=== PATIENT | female | born 1985 | race Caucasian/White ===

== ENCOUNTER 2018-01-26 12:52 | Emergency (ER) | payer BC ==
[2018-01-26 13:02] VITALS: BP 148/86
[2018-01-26] MEDS ORDERED: Albuterol/Ipratropium NEB.SOL* Albuterol 2.5 MG/Ipratropium 0.5 MG 3 ML INH ONE (13:37)
--- NOTE | 2018-01-26 13:37 | UC ---
Respiratory Complaint HPI - HPI Summary HPI Summary: Patient presents to urgent care reporting increased persistent coughing and congestion. Patient states she has a wheeze in her chest. Patient also reports she has a headache particular she coughs. No vision changes. No fevers or chills. Patient states at night she takes NyQuil wakes up sweaty. Patient has been taking ibuprofen intermittently that helped her headache. Patient is a schoolteacher with multiple sick contacts. Patient denies chest pain. No abdominal pain. No nausea vomiting. Patient endorses a decreased appetite. She took Mucinex. Patient's medications reviewed this visit. Patient states she is not . - History of Current Complaint Chief Complaint: UCGeneralIllness Stated Complaint: WINSTON,COUGH,CONGESTION Time Seen by Provider: 01/26/18 13:22 Hx Obtained From: Patient Hx Last Menstrual Period: 01/23/18 Pain Intensity: 7 Pain Scale Used: 0-10 Numeric - Allergies/Home Medications Allergies/Adverse Reactions: Allergies Allergy/AdvReac Type Severity Reaction Status Date / Time No Known Allergies Allergy Verified 01/26/18 13:00 Home Medications: Home Medications Ibuprofen 600 mg PO ONCE 01/26/18 [History Confirmed 01/26/18] guaiFENesin [Mucinex] 1,200 mg PO ONCE 01/26/18 [History Confirmed 01/26/18] PMH/Surg Hx/FS Hx/Imm Hx Previously Healthy: Yes - Surgical History Surgical History: Yes Surgery Procedure, Year, and Place: tonsillectomy - Family History Known Family History: Positive: Other - non contributory Negative: Cardiac Disease, Hypertension - Social History Occupation: Employed Full-time Alcohol Use: Occasionally Substance Use Type: None Smoking Status (MU): Never Smoked Tobacco - Immunization History Most Recent Influenza Vaccination: none Review of Systems Constitutional: Negative Skin: Negative ENT: Nasal Discharge, Sinus Congestion Respiratory: Cough All Other Systems Reviewed And Are Negative: Yes Physical Exam - Summary Physical Exam Summary: Vital Signs Reviewed: Yes A+Ox3, no distress Eyes: Conjunctiva Clear, SEE. EOM intact and full ENT: Hearing grossly normal right TM obscurred by cerum -pt declined flush, lert TM wnl, turbinates inflammed and boggy + PND, mmoist, uvula midline, no exudate, no erythema Neck: Positive: Supple no LA Respiratory: Positive coarse cough + wheeze, no increased RR no accessory muscle use Cardiovascular: RRR nl s1, s2 no m/r CBT <2 sec abd soft + BS nt/nd no guarding, no distension Musculoskeletal Exam: MALLORY x 4 without difficulty Strength Intact, ROM Intact Neurological: Positive: Alert, + sensation throughout Psychological: Positive: Normal Response To Family Skin: Positive: no rash, no ecchymosis Triage Information Reviewed: Yes Vital Signs: Initial Vital Signs Temp 98.7 F 01/26/18 12:58 Pulse 115 01/26/18 12:58 Resp 15 01/26/18 12:58 BP 148/86 01/26/18 12:58 Pulse Ox 97 01/26/18 12:58 Diagnostic Evaluation - Laboratory O2 Sat by Pulse Oximetry: 97 Respiratory Course/Dx - Course Course Of Treatment: Patient presents reporting 4 days progressive congestion cough. Mild production with her cough. Patient does have wheezes. Patient's reports tactile temperature. Patient's been taking DayQuil and NyQuil with intermittent relief. Patient hasn't taken ibuprofen that she has headaches with coughing spells. Patient is a schoolteacher with multiple sick contacts. Patient without any other complaints. Patient with history of lung disease. On exam vital signs are stable. Patient does have a coarse persistent cough. Patient diffusely wheezy. We'll give a DuoNeb and reassessed. Anticipate prednisone albuterol possible antibiotic. Patient comfortable in agreement with plan. - Differential Dx/Diagnosis Provider Diagnoses: acute bronchitis Discharge - Sign-Out/Discharge Documenting (check all that apply): Patient Departure All imaging exams completed and their final reports reviewed: No Studies - Discharge Plan Condition: Stable Disposition: HOME Prescriptions: Albuterol HFA INHALER* [Ventolin HFA Inhaler*] 2 puff INH Q4H PRN #1 mdi PRN Reason: wheeze Amoxicillin PO (*) [Amoxicillin 500 MG CAP*] 500 mg PO Q12H #20 cap Inhaler, Assist Devices [Aerochamber Mv] 1 each PO Q6HR #1 spacer predniSONE TAB* [Deltasone 20 MG TAB*] 40 mg PO DAILY #10 tab Patient Education Materials: Acute Bronchitis (ED) Referrals: [facility] [place] [facility] [Outside] No Primary Care Phys,NOPCP [Primary Care Provider] - Additional Instructions: - Take antibiotics exactly as prescribed until gone - Use your albuterol puffer - 2 puffs every 4 hours for the next 2 days - then as needed - Take prednisone as prescribed until gone - These infections are spread by oral secretions. Do not share eating or drinking utensils. Frequent hand washing is important. Clean items that may get your secretions on them such as cell phones, ipads, computer mouse, television remotes. Once you have been on antbiotics for 2 days, change your pillowcase and your toothbrush - Okay to take over the counter cough and decongestant medication -Stay well hydrated - avoid excess caffeine and all alcohol - eat regular, healthy meals -Contact your doctor to arrange a follow-up appointment this week. Call your doctor, return here or go to the emergency department with any questions or concerns - Billing Disposition and Condition Condition: STABLE Disposition: Home
== END 2018-01-26 14:27 | disposition home or self-care (01) ==
LOC: UCCORT 12:52
DX: J20.9 Acute bronchitis, unspecified (principal)
CPT/HCPCS: 99212; A9270-GY; G0463

== ENCOUNTER 2019-01-18 12:09 | Emergency (ER) | payer SELFPAY ==
[2019-01-18] MEDS ORDERED: Famotidine TAB* 20 MG PO ONE (12:43)
[2019-01-18] MEDS ORDERED: predniSONE TAB* 20 MG PO ONE (12:43)
[2019-01-18] MEDS ORDERED: diPHENhydraMINE PO* 50 MG PO ONE (12:43)
--- NOTE | 2019-01-18 12:49 | UC ---
Skin Complaint HPI - HPI Summary HPI Summary: 33-year-old woman comes in with a chief complaint of facial swelling. Patient started with a rash on her arm several days ago. Yesterday she has some swelling around her eyes on her face. She took some Benadryl yesterday without any apparent improvement. Difficulty swallowing no shortness of breath. She did try a new shampoo that she stopped using several days ago when she started with a rash. No prior history of allergic reactions. No fevers no chills no upper respiratory tract infection symptoms feels well otherwise. - History of Current Complaint Time Seen by Provider: 01/18/19 12:36 Stated Complaint: B/L EYE SWELLING, RASH Hx Last Menstrual Period: 01/23/18 - Allergy/Home Medications Allergies/Adverse Reactions: Allergies Allergy/AdvReac Type Severity Reaction Status Date / Time No Known Allergies Allergy Verified 01/18/19 12:43 Home Medications: Home Medications diPHENhydraMINE PO* [Benadryl PO 25 MG TAB*] 25 mg PO Q6H PRN 01/18/19 [History Confirmed 01/18/19] PMH/Surg Hx/FS Hx/Imm Hx Previously Healthy: Yes - Surgical History Surgical History: Yes Surgery Procedure, Year, and Place: tonsillectomy - Family History Known Family History: Positive: Other - non contributory Negative: Cardiac Disease, Hypertension - Social History Alcohol Use: Occasionally Substance Use Type: None Smoking Status (MU): Never Smoked Tobacco - Immunization History Most Recent Influenza Vaccination: none Review of Systems All Other Systems Reviewed And Are Negative: Yes Constitutional: Positive: Negative Skin: Positive: Other - SEE HPI Eyes: Positive: Negative ENT: Positive: Negative Respiratory: Positive: Negative Cardiovascular: Positive: Negative Gastrointestinal: Positive: Negative Motor: Positive: Negative Neurovascular: Positive: Negative Musculoskeletal: Positive: Negative Neurological: Positive: Negative Psychological: Positive: Negative Is Patient Immunocompromised?: No Physical Exam Triage Information Reviewed: Yes Appearance: Well-Appearing, No Pain Distress, Well-Nourished Vital Signs Reviewed: Yes Eye Exam: Normal Eyes: Positive: Conjunctiva Clear ENT: Positive: Pharynx normal, Uvula midline. Negative: Muffled voice, Hoarse voice Neck: Positive: Supple Respiratory: Positive: Lungs clear, Normal breath sounds, No respiratory distress Cardiovascular: Positive: RRR Musculoskeletal: Positive: Strength Intact, ROM Intact Neurological: Positive: Alert Psychological: Positive: Age Appropriate Behavior Skin: Positive: Other - Patient has swelling and erythema that is symmetric of the forehead orbital area temporal areas and cheeks. No lip swelling. Also has a fine erythematous rash on both arms without any swelling. Course/Dx - Diagnoses Provider Diagnosis: Facial swelling, Allergic reaction, Rash Discharge ED - Sign-Out/Discharge Documenting (check all that apply): Patient Departure All imaging exams completed and their final reports reviewed: No Studies - Discharge Plan Condition: Stable Disposition: HOME Prescriptions: Famotidine TAB* [Pepcid 20 MG TAB*] 20 mg PO BID PRN #8 tab PRN Reason: Allergy Symptoms predniSONE TAB* [Deltasone 20 MG TAB*] 40 mg PO DAILY PRN #8 tab PRN Reason: Allergy Symptoms Patient Education Materials: General Allergic Reaction (ED), Acute Rash (ED) Referrals: [facility] [place] [facility] [Outside] Additional Instructions: FOLLOW UP WITH YOUR DOCTOR IF NOT COMPLETELY IMPROVED. TAKE BENADRYL 50MG EVERY 6 HOURS NEEDED TAKE PEPCID 20MG TWICE A DAY NEEDED TAKE PREDNISONE DIRECTED NEEDED GO TO THE EMERGENCY DEPARTMENT IF NOT IMPROVING OR IF YOUR CONDITION WORSENS; DIFFICULTY BREATHING OR SWALLOWING, YOU FEEL ILL OR ANY QUESTIONS OR CONCERNS. - Billing Disposition and Condition Condition: STABLE Disposition: Home
[2019-01-18 12:51] VITALS: BP 141/89
== END 2019-01-18 13:03 | disposition home or self-care (01) ==
LOC: UCCORT 12:09
DX: R22.0 Localized swelling, mass and lump, head (principal); R21 Rash and other nonspecific skin eruption; T78.49XA Other allergy, initial encounter; X58.XXXA Exposure to other specified factors, initial encounter
CPT/HCPCS: 99212; A9270-GY; G0463; J7512